=== PATIENT | female | born 1980 | race Caucasian/White ===

== ENCOUNTER 2016-10-08 13:10 | Emergency (ER) | payer BC ==
--- NOTE | 2016-10-27 15:51 | ER ---
ADMIT: 10/08/2016 RM/LOC: ER [facility] MR#: [id number] [facility] [address], [place] [address] DOROTHY SOLIMAN [address] [facility] [place] [address] Emergency Room Report SEX: F AGE: 36 : 1980 DATE: 10/08/2016 This 36-year-old female comes to the Emergency Department with the chest pain described as sharp, stabbing with deep inspirations or coughing. States she recently got over a cold only to develop these symptoms. See T-sheet for remainder of history and physical. Chest x-ray has a questionable nodule on the left which should be followed up in the future. She is given Toradol with relief of the pain. Given prescription for albuterol MDI and encouraged to follow up with the primary doctor if not better in 2 or 3 days. She does need to follow up in any event, with repeat chest x-ray to clarify the possibility of a nodule. DIAGNOSIS: Pleuritis. José Miguel Cai MD/ ozzie JOB #: [id number] CC: José Miguel Cai MD, Attending Physician
== END 2016-10-08 14:20 | disposition home or self-care (01) ==
LOC: ER 13:10
DX: R09.1 Pleurisy (principal); J30.2 Other seasonal allergic rhinitis